=== PATIENT | female | born 2000 ===

== ENCOUNTER 2020-10-12 21:25 | Emergency (ER) | payer OTHER ==
[~2020-10-12] VITALS: Ht 170.2 cm; Wt 83.0 kg
[2020-10-12] MEDS ORDERED: ATORVASTATIN CA20 MG PO (22:08)
== END 2020-10-13 | disposition home or self-care (01) ==
LOC: EMR PED 21:25 → ER 21:25 → EMR PED 10-13 00:38
DX: S90.871A Other superficial bite of right foot, initial encounter (principal); W56.81XA Bitten by other nonvenomous marine animals, initial encounter; Y93.89 Activity, other specified; Y92.832 Beach as the place of occurrence of the external cause; Y99.8 Other external cause status